=== PATIENT | male | born 1975 | race Caucasian/White ===

== ENCOUNTER 2017-06-23 20:54 | Emergency (ER) | payer OTHER ==
[2017-06-23] MEDS ORDERED: NS 1,000 ML IV ONE (21:16)
--- NOTE | 2017-06-23 21:20 | CPEKG ---
Heart Rate: 69 RR Interval: 870 P-R Interval: 164 QRSD Interval: 94 QT Interval: 360 QTC Interval: 386 P [place]: 68 QRS [place]: 25 T Wave Bradford: 26 EKG Severity - NORMAL ECG - EKG Impression: SINUS RHYTHM Electronically Signed By: Natasha Guardado 23-Jun-2017 22:35:49
--- NOTE | 2017-06-23 21:22 | EDPHY ---
H & P Time Seen by Provider: 06/23/17 21:16 HPI/ROS: CHIEF COMPLAINT: Palpitations HISTORY OF PRESENT ILLNESS: The patient is a 41-year-old male presenting with palpitations that occurred while at dinner tonight. The patient states his heart was racing and pounding. He turned pale and had associated dizziness and chest tightness. This lasted for about 15 seconds. The patient states has experienced an irregular heart beats with palpitations for the past month. Usually he feels this before bed. He describes a thumping sensation followed by a pause. Patient notes increase in stress lately due to changing jobs. He denies shortness of breath, chest pain, or lower extremity pain or swelling. REVIEW OF SYSTEMS: A comprehensive 10 point review of systems is otherwise negative aside from elements mentioned in the history of present illness. Past Medical/Surgical History: Denies. Social History: Here with life partner. Smoking Status: Former smoker Physical Exam: General Appearance: Alert, pleasant Eyes: Pupils equal and round, no conjunctival pallor or injection ENT, Mouth: Mucous membranes moist Neck: Normal inspection Respiratory: Lungs are clear to auscultation Cardiovascular: Regular rate and rhythm Gastrointestinal: Abdomen is soft and non-tender Neurological: A&O, nonfocal, normal gait Skin: Warm and dry, no rash Extremities: Nontender, no pedal edema Psychiatric: Mood and affect normal Constitutional: Initial Vital Signs Temperature (C) 36.9 C 06/23/17 20:59 Heart Rate 81 06/23/17 20:59 Respiratory Rate 20 06/23/17 20:59 Blood Pressure 145/90 H 06/23/17 20:59 O2 Sat (%) 95 06/23/17 20:59 O2 Delivery Mode Room Air Allergies/Adverse Reactions: No Known Allergies Allergy (Unverified 06/23/17 20:58) Home Medications: Medication Instructions Recorded [place]imateo 06/23/17 Medical Decision Making - Diagnostics EKG Interpretation: EKG interpreted by me reveals normal sinus rhythm, normal axis, normal intervals , ST and T segments normal. Interpretation: normal EKG ED Course/Re-evaluation: Patient presents with palpitations that lasted for about 15 seconds. He had associated chest pain and shortness of breath. Patient was placed on the diagnostic cardiac sonographer. Plan for lab work including CBC and BMP. gambling monitor revealed normal sinus rhythm throughout. The patient was asymptomatic throughout his emergency department stay. Patient will follow up with Cardiology as an outpatient for Holter monitoring. Differential Diagnosis: Includes though not limited to SVT, atrial fibrillation, ventricular dysrhythmia - Data Points Laboratory Results: Laboratory Results 06/23/17 21:30 06/23/17 21:30 06/23/17 06/23/17 21:30 21:30 WBC 5.95 10^3/uL 10^3/uL (3.80-9.50) RBC 4.52 10^6/uL 10^6/uL (4.40-6.38) Hgb 14.2 g/dL g/dL (13.7-17.5) Hct 39.2 % L % (40.0-51.0) MCV 86.7 fL fL (81.5-99.8) MCH 31.4 pg pg (27.9-34.1) MCHC 36.2 g/dL g/dL (32.4-36.7) RDW 11.5 % % (11.5-15.2) Plt Count 223 10^3/uL 10^3/uL (150-400) MPV 9.9 fL fL (8.7-11.7) Neut % (Auto) 48.8 % % (39.3-74.2) Lymph % (Auto) 40.2 % % (15.0-45.0) [place] % (Auto) 7.7 % % (4.5-13.0) Eos % (Auto) 2.2 % % (0.6-7.6) Baso % (Auto) 0.8 % % (0.3-1.7) Nucleat RBC Rel Count 0.0 % % (0.0-0.2) Absolute Neuts (auto) 2.90 10^3/uL 10^3/uL (1.70-6.50) Absolute Lymphs (auto) 2.39 10^3/uL 10^3/uL (1.00-3.00) Absolute Monos (auto) 0.46 10^3/uL 10^3/uL (0.30-0.80) Absolute Eos (auto) 0.13 10^3/uL 10^3/uL (0.03-0.40) Absolute Basos (auto) 0.05 10^3/uL 10^3/uL (0.02-0.10) Absolute Nucleated RBC 0.00 10^3/uL 10^3/uL (0-0.01) Immature Gran % 0.3 % % (0.0-1.1) Immature Gran # 0.02 10^3/uL 10^3/uL (0.00-0.10) Sodium 136 mEq/L mEq/L (134-144) Potassium 3.4 mEq/L L mEq/L (3.5-5.2) Chloride 102 mEq/L mEq/L (97-110) Carbon Dioxide 19 mEq/l L mEq/l (22-31) Anion Gap 15 mEq/L mEq/L (8-16) BUN 18 mg/dL mg/dL (7-23) Creatinine 1.1 mg/dL mg/dL (0.7-1.3) Estimated GFR > 60 Glucose 87 mg/dL mg/dL (70-100) Calcium 9.6 mg/dL mg/dL (8.5-10.4) Medications Given: Discontinued Medications Sodium Chloride (Ns) 1,000 mls @ 0 mls/hr IV EDNOW ONE; Wide Open PRN Reason: Protocol Stop: 06/23/17 21:17 Last Admin: 06/23/17 21:30 Dose: 1,000 mls Departure - Departure Disposition: Home, Routine, Self-Care Clinical Impression: Palpitations Condition: Good Instructions: Palpitations (ED) Additional Instructions: You have been referred to a automobile upholsterer apprentice below. Please call tomorrow to schedule a followup appointment. Return to the Emergency Department with severe chest pain, lightheadedness, shortness of breath, or other concerning symptoms. Referrals: Abner Alberto MD [Medical Doctor] - As per Instructions Report Scribed for: Natasha Guardado Report Scribed by: Cinda Alba Date of Report: 06/23/17 Time of Report: 21:18 Physician Review and Approval Statement: 06/23/17 21:18 Portions of this note were transcribed by a internist medical doctor md. I personally performed the history, physical exam, and medical decision-making; and confirmed the accuracy of the information in the transcribed note.
[2017-06-23 21:42] LABS: % IMMATURE GRANULYOCYTES 0.3 % (0.0-1.1); ABSOLUTE IMMATURE GRANULOCYTES 0.02 10^3/uL (0.00-0.10); ADD DIFF? NO; ADD MORPH? NO; ADD SCAN? NO; ATYPICAL LYMPHOCYTE FLAG 0 (0-99); FRAGMENT RBC FLAG 10 (0-99); HEMATOCRIT 39.2 % (40.0-51.0); HEMOGLOBIN 14.2 g/dL (13.7-17.5); LEFT SHIFT FLG 0 (0-99); LIPEMIA HEMOLYSIS FLAG 90 (0-99); MEAN CELL HEMOGLOBIN 31.4 pg (27.9-34.1); MEAN CELL HEMOGLOBIN CONCENTR. 36.2 g/dL (32.4-36.7); MEAN CELL VOLUME 86.7 fL (81.5-99.8); MEAN PLATELET VOLUME 9.9 fL (8.7-11.7); PLATELET CLUMPS FLAG 0 (0-99); PLATELET COUNT 223 10^3/uL (150-400); RED BLOOD CELL COUNT 4.52 10^6/uL (4.40-6.38); RED CELL DISTRIBUTION WIDTH 11.5 % (11.5-15.2)
[2017-06-23 21:45] LABS: ANION GAP 15 mEq/L (8-16); CALCIUM 9.6 mg/dL (8.5-10.4); CARBON DIOXIDE 19 mEq/l (22-31); CHLORIDE 102 mEq/L (97-110); CREATININE 1.1 mg/dL (0.7-1.3); GLOMERULAR FILTRATION RATE > 60; GLUCOSE 87 mg/dL (70-100); POTASSIUM 3.4 mEq/L (3.5-5.2); SODIUM 136 mEq/L (134-144)
[2017-06-23 22:24] VITALS: BP 132/80; PULSE 80; RESP 16; TEMP 97.9; O2SAT 95
== END 2017-06-23 22:24 | disposition home or self-care (01) ==
DX: R00.2 Palpitations (principal); E86.9 Volume depletion, unspecified; Z87.891 Personal history of nicotine dependence

== ENCOUNTER 2018-03-21 21:41 | Emergency (ER) | payer OTHER ==
--- NOTE | 2018-03-21 21:51 | CPEKG ---
Heart Rate: 72 RR Interval: 833 P-R Interval: 144 QRSD Interval: 88 QT Interval: 372 QTC Interval: 408 P [place]: 53 QRS [place]: 3 T Wave [place]: 34 EKG Severity - NORMAL ECG - EKG Impression: SINUS RHYTHM Electronically Signed By: Abner Alberto 23-Mar-2018 11:47:54
--- NOTE | 2018-03-21 22:26 | EDPHY ---
H & P Stated Complaint: blood in stool, chest tightness Time Seen by Provider: 03/21/18 21:59 HPI/ROS: HPI The patient presents with multiple complaints, most prominent and concerning to him is bright red blood per rectum which occurred at about 2:00 p.m. This afternoon while at the [place]. He was returning from a trip where he visited his family in [place]. He did drink some alcohol on this trip, however was not camping. He had diarrhea 2 days ago, yesterday felt fine, earlier today , had diffuse mild abdominal discomfort which improved after eating a meal. Then had a single episode of bright red blood in toilet bowl and small blood clot when he white. This was not painful, not associated with any straining. He had 1 prior episode of this many years ago. He does have a familial history of polyps and has been seen by Dr. Baird of GI for this. His last colonoscopy was 5 years ago and was normal. He is due for screening colonoscopy in the coming months. He has not had any fevers or chills, not been camping recently, not had any nausea or vomiting. He denies any dark or tarry stools recently. He also has chest tightness and bilateral ear pain, however the symptoms are subacute. His chest tightness has been evaluated by his primary care doctor. He also had an echocardiogram performed in the last 1 year by Cardiology because of chest tightness and palpitations, he reports this was normal. He has been taking a PPI for the last several weeks with mild improvement in his symptoms. He describes a tight sensation throughout his chest as well as a gurgling sensation, this is been associated with a sore throat which has somewhat improved with PPI. He also has bilateral ear pain and pressure, not improved with the loratadine or amoxicillin, 12 day course. REVIEW OF SYSTEMS Constitutional: No fever, no chills. Eyes: No discharge. ENT: No sore throat. Cardiovascular: Chest tightness, no palpitations. Respiratory: No cough, no shortness of breath. Gastrointestinal: See HPI Genitourinary: No hematuria. Musculoskeletal: No back pain. Skin: No rashes. Neurological: No headache. PMHx: Healthy Soc Hx: Housed FHx: Colon polyps PHYSICAL General Appearance: Alert, no distress Eyes: Pupils equal and round no pallor or injection ENT, Mouth: TMs clear bilaterally, no tragal tenderness Mucous membranes moist , posterior pharynx unremarkable Respiratory: There are no retractions, lungs are clear to auscultation, no chest wall tenderness Cardiovascular: Regular rate and rhythm Gastrointestinal: Abdomen is soft and non-tender, no masses, bowel sounds normal Rectal: External hemorrhoids with hemorrhoid at 3 o'clock which is slightly inflamed with abraded epidermis, there are no rectal masses, there is no stool or blood in the rectal vault Neurological: A&O, moves all extremities Skin: Warm and dry, no rashes Musculoskeletal: Neck is supple non tender Extremities: symmetrical, full range of motion Psychiatric: Patient is oriented X 3, there is no agitation Source: Patient Exam Limitations: No limitations - Personal History Current Tetanus/Diphtheria Vaccine: Yes Tetanus Vaccine Date: 2012 - Medical/Surgical History Hx Asthma: No Hx Chronic Respiratory Disease: No Hx Diabetes: No Hx Cardiac Disease: No Hx Renal Disease: No Hx Cirrhosis: No Hx Alcoholism: No Hx HIV/AIDS: No Hx Splenectomy or Spleen Trauma: No Other PMH: EYE SURG, ANAL FISSURE SURG X2, ANXIETY, GERD - Social History Smoking Status: Former smoker Constitutional: Initial Vital Signs Heart Rate 66 03/21/18 21:50 Respiratory Rate 16 03/21/18 21:50 Blood Pressure 133/93 H 03/21/18 21:50 O2 Sat (%) 95 03/21/18 21:50 O2 Delivery Mode Room Air Allergies/Adverse Reactions: No Known Allergies Allergy (Unverified 06/23/17 20:58) Home Medications: Medication Instructions Recorded Elidel 06/23/17 Medical Decision Making - Diagnostics EKG Interpretation: EKG: Complete interpretation has been separately recorded in the [facility] archive. Summary impression: Normal sinus rhythm Imaging Results: Imaging Impressions Chest/Thorax CTA 03/21/18 23:22 Impression: 1. No definite pulmonary thromboemboli. 2. No acute pulmonary disease. Findings and recommendations discussed with Emergency Department physician, Misti Callahan MD at 23:47 hour, 03/21/2018. Final report concurs with initial preliminary interpretation. A test result has been communicated to a licensed care provider and documented in the [facility] Critical Result system on 03/21/2018 23:49, Message ID [id number]. Imaging: Discussed imaging studies w/ social work msw Radiologist Differential Diagnosis: This is a 42-year-old healthy male who presents with an episode of bright red blood per rectum occurring about 8 hr prior to presentation. This is an isolated episode, though in the setting of diarrhea over the last 2 days. On exam, he does have external hemorrhoids, with evidence of denuded skin overlying these to suggest bleeding external hemorrhoid, which could of been provoked from diarrhea. I have also considered colitis, AVM, colon malignancy. , however I feel these are much less likely. In regards to his ear pain, given his symptoms did not improve with a course of amoxicillin, he does not have any signs of congestion, his symptoms did not become worse with air plane flight, I am unsure what is causing his symptoms. I doubt sinister causes. I plan to refer him to ENT. His chest tightness has been ongoing for months at this point. Not improve much with PPI. I would consider pulmonary embolism as the cause of his symptoms , and because of this I will send a D-dimer, however I think this is unlikely. In the emergency department, labs were checked and were unremarkable except for a D-dimer which was positive. I discussed this with the patient and we have decided to move forward with CT scan of his chest to evaluate for PE. CT scan of the chest demonstrated no PE and no other acute findings to explain the patient's chest tightness. I discussed this result with the patient. GERD is a consideration. I have encouraged him to continue taking his PPI. We have discussed foods to avoid. He has plans to follow up with Dr. Baird of GI and I will encourage him to discuss this chest pain with him. - Data Points Laboratory Results: Laboratory Results 03/21/18 22:00 03/21/18 22:00 03/21/18 03/21/18 03/21/18 22:00 22:00 22:00 WBC 6.46 10^3/uL 10^3/uL (3.80-9.50) RBC 5.13 10^6/uL 10^6/uL (4.40-6.38) Hgb 16.0 g/dL g/dL (13.7-17.5) Hct 44.4 % % (40.0-51.0) MCV 86.5 fL fL (81.5-99.8) MCH 31.2 pg pg (27.9-34.1) MCHC 36.0 g/dL g/dL (32.4-36.7) RDW 11.9 % % (11.5-15.2) Plt Count 242 10^3/uL 10^3/uL (150-400) MPV 9.7 fL fL (8.7-11.7) Neut % (Auto) 51.9 % % (39.3-74.2) Lymph % (Auto) 35.4 % % (15.0-45.0) [place] % (Auto) 8.5 % % (4.5-13.0) Eos % (Auto) 3.3 % % (0.6-7.6) Baso % (Auto) 0.6 % % (0.3-1.7) Nucleat RBC Rel Count 0.0 % % (0.0-0.2) Absolute Neuts (auto) 3.35 10^3/uL 10^3/uL (1.70-6.50) Absolute Lymphs (auto) 2.29 10^3/uL 10^3/uL (1.00-3.00) Absolute Monos (auto) 0.55 10^3/uL 10^3/uL (0.30-0.80) Absolute Eos (auto) 0.21 10^3/uL 10^3/uL (0.03-0.40) Absolute Basos (auto) 0.04 10^3/uL 10^3/uL (0.02-0.10) Absolute Nucleated RBC 0.00 10^3/uL 10^3/uL (0-0.01) Immature Gran % 0.3 % % (0.0-1.1) Immature Gran # 0.02 10^3/uL 10^3/uL (0.00-0.10) D-Dimer 0.59 ug/mLFEU H ug/mLFEU (0.00-0.50) Sodium 142 mEq/L mEq/L (135-145) Potassium 4.0 mEq/L mEq/L (3.3-5.0) Chloride 102 mEq/L mEq/L (97-110) Carbon Dioxide 27 mEq/l mEq/l (22-31) Anion Gap 13 mEq/L mEq/L (8-16) BUN 15 mg/dL mg/dL (7-23) Creatinine 0.9 mg/dL mg/dL (0.7-1.3) Estimated GFR > 60 Glucose 78 mg/dL mg/dL (70-100) Calcium 9.2 mg/dL mg/dL (8.5-10.4) Total Bilirubin 0.4 mg/dL mg/dL (0.1-1.4) AST 28 IU/L IU/L (17-59) ALT 42 IU/L IU/L (21-72) Alkaline Phosphatase 57 IU/L IU/L (38-126) Troponin I < 0.012 ng/mL ng/mL (0.000-0.034) Total Protein 7.8 g/dL g/dL (6.3-8.2) Albumin 4.7 g/dL g/dL (3.5-5.0) Departure - Departure Disposition: Home, Routine, Self-Care Clinical Impression: Bright red blood per rectum, External hemorrhoid, bleeding, Ear pain, Chest tightness Condition: Good Instructions: Hemorrhoids (ED) Additional Instructions: I recommend that you monitor your bowel movements at home. If you have any increasing rectal bleeding, you should follow up with your primary care doctor or your inspection manager. I have given you information for the Ear Nose and Throat doctor Dr. Ernst to make an appointment with if your ear pain continues. Please return to the emergency department if your worse in any way. Referrals: Shayy Ibrahim MD [Primary Care Provider] - As per Instructions Elliott Baird MD [place] [place] - As per Instructions Jorge Ernst MD [Medical Doctor] - As per Instructions
[2018-03-21 22:40] LABS: PLATELET COUNT 242 10^3/uL (150-400)
[2018-03-21] MEDS ORDERED: IOPAMIDOL (ISOVUE 370) 100 ML BTL IV ONE (23:25)
[2018-03-22] VITALS: BP 124/86
== END 2018-03-21 23:58 | disposition home or self-care (01) ==
DX: K64.4 Residual hemorrhoidal skin tags (principal); H92.03 Otalgia, bilateral; R07.89 Other chest pain; Z87.891 Personal history of nicotine dependence
CPT/HCPCS: Q9967

== ENCOUNTER → 2018-06-29 | Outpatient (CLI) | payer OTHER | LOC: BMCIMAGING 08:49 | PROVIDERS: ATTEND Orthopaedic Surgery Hand Surgery | DX: M25.511 Pain in right shoulder (principal) ==

== ENCOUNTER 2019-03-27 16:25 | Emergency (ER) | payer OTHER | END 2019-03-27 20:21 | disposition home or self-care (01) ==